=== PATIENT | female | born 1995 | race Caucasian/White ===

== ENCOUNTER 2024-11-20 20:53 | Emergency (ER) | payer MEDICAID ==
[~2024-11-20] VITALS: Ht 154.9 cm; Wt 75.0 kg
[2024-11-20 21:35] LABS: MEAN PLATELET VOLUME 9.7 FL (7.4-10.4); RED CELL DISTRIBUTION WIDTH 13.7 % (11.5-14.5)
[2024-11-20 21:42] LABS: CREATININE 0.68 MG/DL (0.40-0.90); TOTAL CARBON DIOXIDE 27.2 MMOL/L (24-32); eCRCL 94 ML/MIN; eGFR > 90 ML/MIN
--- NOTE | 2024-11-20 23:32 | Physician Documentation ---
History of Present Illness ~ Chief Complaint: Abdominal Pain w/vomiting Stated Complaint: ABD PAIN Time Seen by MD: 23:31 HPI Patient presents to the emergency room with back pain onset today. She states she felt fine yesterday. No unusual activities or exercises yesterday. No falls. No prior instances. She denies any dysuria. Mild abdominal pain. Attempted to take an antispasm medication but threw it up. She is not currently menstruating. Medication Reconciliation Allergies: Coded Allergies: No Known Allergies (Unverified , 11/20/24) Scheduled Sertraline HCl (Sertraline HCl), 50 MG PO DAILY, (Reported) Review of Systems ROS All review of systems negative except as per HPI Physical Exam Vital Signs: Temperature: 99.5, Source: Oral, Heart Rate: 110, Respiratory Rate: 18, BP: 123/82, Pulse Oximetry: 99, Weight: 75.000 Oxygen Flow Rate: 0 Physical Exam General: Patient is awake, alert, oriented x4 in no acute distress. Able to adjust herself in her bed without limitation Head: Normocephalic and atraumatic. Eyes: Conjunctival normal. EOMI. PERRL. ENT: Mucous membranes moist. Neck: Supple, trachea is midline. Chest: Clear to auscultation bilaterally without rales, rhonchi, or wheezes. There is no accessory muscle use or retractions. Cardiac: RRR without murmurs, gallops, or rubs. Abd: Soft, nondistended, very mild diffuse abdominal tenderness without peritonitis Back: Bilateral SI joint tenderness to palpation right greater than left Progress Results/Orders Results/Orders Orders - DARCI LEMON MD Covid19 Binax Poc Result Entry (11/21/24 00:19) Completed Orders - DARCI LEMON MD Hcg, Ur Ql (11/20/24 21:06) Cbc/Diff (11/20/24 21:06) BMP (11/20/24 21:06) Lipase (11/20/24 21:06) CMP (11/20/24 21:06) Ibuprofen Tablet (Motrin Tablet) (11/20/24 23:40) Acetaminophen 325mg Tablet (Tylenol Tabl (11/20/24 23:40) Cyclobenzaprine Tablet (Flexeril Tablet) (11/20/24 23:40) Ondansetron Disint. Tablet (Zofran Odt T (11/20/24 23:40) Ua W/Microscopic, Cult If Ind (11/20/24 23:30) Medications Received in ER Medications (Trade) Dose Ordered Sig/Mikhail Route PRN Reason Start Time Stop Time Status Last Admin Dose Admin (Motrin tablet) 800 mg ONCE ONCE PO 11/20/24 23:40 11/20/24 23:41 DC 11/21/24 00:14 800 MG (Tylenol tablet) 975 mg ONCE ONCE PO 11/20/24 23:40 11/20/24 23:41 DC 11/21/24 00:13 975 MG (Flexeril tablet) 10 mg ONCE ONCE PO 11/20/24 23:40 11/20/24 23:41 DC 11/21/24 00:14 10 MG (Zofran ODT tablet) 8 mg ONCE ONCE PO 11/20/24 23:40 11/20/24 23:41 DC 11/21/24 00:14 8 MG Vital Signs 11/20/24 11/20/24 11/21/24 21:07 23:36 00:56 Temp 99.5 98.6 Pulse 110 87 82 Resp 18 18 16 B/P (MAP) 123/82 141/96 (111) 134/87 (103) Pulse Ox 99 100 100 O2 Flow Rate 0 0 Laboratory Tests Test 11/20/24 21:20 11/20/24 23:30 11/21/24 00:52 White Blood Count 10.6 Red Blood Count 4.72 Hemoglobin 14.0 Hematocrit 41.1 Mean Corpuscular Volume 87.2 Mean Corpuscular Hemoglobin 29.7 Mean Corpuscular Hemoglobin Concent 34.1 Red Cell Distribution Width 13.7 Platelet Count 262 Mean Platelet Volume 9.7 Neutrophils (%) (Auto) 83.3 H Lymphocytes (%) (Auto) 4.3 L Monocytes (%) (Auto) 9.3 Eosinophils (%) (Auto) 2.8 Basophils (%) (Auto) 0.3 Neutrophils # (Auto) 8.8 H Lymphocytes # (Auto) 0.5 L Monocytes # (Auto) 1.0 H Eosinophils # (Auto) 0.3 Basophils # (Auto) 0.0 CBC Comment Sodium Level 138 Potassium Level 3.5 Chloride Level 104 Carbon Dioxide Level 27.2 Anion Gap 7 L Blood Urea Nitrogen 5 L Creatinine 0.68 Estimated GFR/1.73 m2 > 90 BUN/Creatinine Ratio 7.4 L Glucose Level 113 H Calcium Level 10.4 H Total Bilirubin 0.5 Aspartate Amino Transf (AST/SGOT) 19 Alanine Aminotransferase (ALT/SGPT) 20 Alkaline Phosphatase 75 Total Protein 8.6 H Albumin 4.6 Globulin 4.0 Albumin/Globulin Ratio 1.2 Lipase 23 Chemistry Comments Urine Specimen Description Non-specified Urine Color Yellow Urine Clarity Clear Urine pH 6.0 Urine Specific [place] 1.020 Urine Protein Negative Urine Glucose (UA) Negative Urine Ketones >=80 Urine Occult Blood Trace-intact Urine Nitrite Negative Urine Bilirubin Negative Urine Urobilinogen 0.2 Urine Leukocyte Esterase Negative Urine RBC 0-2 Urine WBC 0-4 Urine Squamous Epithelial Cells Few Urine Bacteria Few Urine Culture Indicated Not ind Volume Urine Centrifuged 10 ml Urine HCG, Qualitative Negative Urine Comment SARS-CoV-2 Antigen (Rapid) Positive *A Medical Decision Making Findings Patient presents to the emergency room with generalized symptoms and back pain. Differentials include but are not limited to viral syndrome, urinary infection, dehydration, lumbago, intra-abdominal infection therefore emergently labs ordered. Labs reassuring. Patient is COVID positive I believe her back pain is reflexion of this. Symptomatic treatment only. Patient is low risk Departure Disposition: 01 HOME / SELF CARE / HOMELESS Impression: Primary Impression: COVID Condition: Stable Discharge Instructions: Viral Illness, Adult Additional Instructions: Ibuprofen and Tylenol may be taken together for your symptoms of body aches and pains Referrals: NO PRIMARY CARE PROVIDER (PCP) Prescriptions Ondansetron 8mg ODT (Ondansetron Odt) 8 Mg Tab.rapdis 1 TAB PO Q6H for nausea/vomiting for 3 Days, #12 TAB 0 Refills Prov: DARCI LEMON MD 11/21/24 Education Educated: Patient Educated regarding: diagnosis, treatment, need for follow up Signature Scribe Signature: No scribe Attestation: The note accurately reflects work and decisions made by me.Darci Lemon MD 11/21/24 01:33 DARCI LEMON MD Nov 20, 2024 23:32
[2024-11-20 23:36] VITALS: TEMP 98.6
[2024-11-20] MEDS ORDERED: SERT-433 PO (23:39)
[2024-11-20 23:43] LABS: URINE HCG NEGATIVE (NEG)
[2024-11-20 23:48] LABS: LEUKOCYTE ESTERASE ,URINE NEGATIVE (Neg); NITRITES, URINE NEGATIVE (Neg); OCCULT BLOOD,URINE TRACE-INTACT (Neg)
[2024-11-20 23:52] LABS: UA COLLECTION TYPE NON-SPECIFIED
[2024-11-20 23:57] LABS: SQUAMOUS EPITHELIAL CELL,UR FEW /LPF (FEW)
[2024-11-21] MEDS: ondansetron 4mg rapidly disintigrating tab PO ONE (00:14)
[2024-11-21] MEDS: ibuprofen tablet 400 MG TABLET PO ONE (00:14)
[2024-11-21] MEDS ORDERED: ONDA-245 PO (01:32)
[2024-11-21 01:44] VITALS: BP 134/87; PULSE 73; RESP 18; O2SAT 98
== END 2024-11-21 01:47 | disposition home or self-care (01) ==
LOC: ER 20:54
DX: U07.1 COVID-19 (principal); M54.9 Dorsalgia, unspecified
CPT/HCPCS: 36415; 80053; 81001; 81025; 83690; 85025; 87811; 99284